=== PATIENT | female | born 1995 | race African-American/Black ===

== ENCOUNTER 2017-12-18 20:50 | Emergency (ER) | payer OTHER ==
[~2017-12-18] VITALS: Ht 167.6 cm; Wt 82.4 kg
[~2017-12-18 20:50] MED LIST: BCPILLS PO
[2017-12-18 20:55] VITALS: BP 139/82; PULSE 80; TEMP 36.9; O2SAT 96; Ht 167.6 cm; Wt 82.4 kg
[2017-12-18] MEDS ORDERED: PRED20TA2 PO (21:20)
--- NOTE | 2017-12-19 17:37 | EMERGENCY ROOM VISIT NOTE ---
History First contact with patient: 21:00 Chief Complaint: SKIN PROBLEM Stated Complaint: SKIN CONDITION History of Present Illness The patient is a 22 year old female who presents to the Emergency Room with complaints of persistent rash for the past several months. The patient states that she has had off-and-on symptoms for at least the last 3 months. She is evidently followed with [facility] [address] as well as an urgent care clinic. She is been treated previously with a topical steroid, which seemed to help her symptoms, however he continues to return. She is not having swelling of her throat, chest pain, chest tightness, shortness of breath, or cough. No abdominal or vaginal complaints. She is not taking anything [id number] such as Benadryl. The patient has not followed with a gerentological physiotherapist or immigration specialist. No new soaps or detergents. She is itching today and rates her discomfort a 2/10. Review of Systems More than 10 systems were reviewed and otherwise negative with the exception of history of present illness. Past Medical/Surgical History Medical Problems: (1) Murmur, cardiac Family History No pertinent family history Social History Smoking Status: Never Smoker Drug Use: marijuana Housing Status: lives with roommate Occupation Status: [place] [employer] student Current/Historical Medications Scheduled Control Pills ( Control Pills), 1 TAB PO DAILY Prednisone (Prednisone Tab), 2 TAB PO DAILY Physical Exam Vital Signs Date Time Temp Pulse Resp B/P (MAP) Pulse Ox O2 Delivery O2 Flow Rate FiO2 12/18/17 20:55 36.9 80 18 139/82 96 Room Air Physical Exam VITALS: Vitals are noted on the nurse's note and reviewed by myself. Vital signs stable. GENERAL: Well-developed, well-nourished, black female, who is in no acute distress and resting comfortably. Patient is cooperative with the examination. MOUTH: Mucous membranes moist. Tonsils are not enlarged. Pharynx without erythema, blood, or exudate. Uvula midline. Airway patent. NECK: Supple without nuchal rigidity. No lymphadenopathy. No thyromegaly. Cervical spine is nontender. HEART: Regular rate and rhythm without murmurs gallops or rubs. LUNGS: Clear to auscultation bilaterally without wheezes, rales or rhonchi. No retractions or accessory muscle use. ABDOMEN: Positive normal bowel sounds x 4. Soft, nontender, without masses or organomegaly. No guarding or rebound tenderness. MUSCULOSKELETAL: No muscle atrophy, erythema, or edema noted. Full range of motion without joint tenderness in all extremities. SKIN: The skin was with diffuse maculopapular rash best appreciated on the upper extremities bilateral. The rash does extend to the anterior chest and back. No obvious urticaria Medical Decision & Procedures Medications Administered Medications (Trade) Dose Ordered Sig/Milly Route Start Time Stop Time Status Last Admin Dose Admin Prednisone (PredniSONE TAB) 40 mg NOW STAT PO 12/18/17 21:12 12/18/17 21:13 DC 12/18/17 21:25 40 MG ED Course Physical exam and history were performed. Nursing notes, EMR, and Medication List were personally reviewed. Patient appears to have a vague rash across her body that is evidently off and on for the past 3 months. The patient certainly is not experiencing anaphylaxis. I do not appreciate evidence of distinct infection. The patient and I had a lengthy discussion regarding options of care. Based on the longevity of symptoms she does need to follow with a specialist. She does not appear to have an acute life-threatening process. I will try to treat her with a short course of steroids. She is to follow with [facility] [address] and get appropriate referrals. She was otherwise invited back to the ER with any new, worsening, or concerning symptoms. The chart was completed utilizing [employer] Speech Voice Recognition Software. Grammatical errors, random word insertions, pronoun errors, and incomplete sentences are an occasional consequence of this system due to software limitations, ambient noise, and hardware issues. Any formal questions or concerns about the content, text, or information contained within the body of this dictation should be directly addressed to the provider for clarification. . Medical Decision Differential diagnosis: Etiologies such as contact dermatitis, viral exanthem, urticaria, allergic reaction, Sanchez-Kaiden syndrome, toxic epidermal necrolysis, erythema multiforme, cellulitis, scabies, HSV, varicella, zoster, eczema, staph scalded skin syndrome, fungal infection, as well as others were entertained. Impression Primary Impression: Rash and nonspecific skin eruption Departure Information Dispostion Home / Self-Care Condition GOOD Prescriptions Prednisone (Prednisone Tab) 20 Mg Tab 2 TAB PO DAILY for 5 Days, #10 TAB Prov: Gabriel Barrett PA-C 12/18/17 Referrals No Doctor, Assigned [facility] (PCP) Forms HOME CARE DOCUMENTATION FORM, IMPORTANT VISIT INFORMATION Patient Instructions My [facility] Additional Instructions You were seen and evaluated today on an emergency basis only. This is not a substitute for, or an effort to provide, complete comprehensive medical care. It is not possible to recognize and treat all injuries or illnesses in a single emergency department visit. For this reason it is recommended that you followup with [facility] [address] as he will need referral to a gerentological physiotherapist or life enrichment specialist specialist. Take prednisone as prescribed You are welcome to return to the emergency department anytime with new, worsening, or concerning symptoms.
== END 2017-12-18 21:29 | disposition home or self-care (01) ==
LOC: C.EDB 20:52 → C.EDD 21:29
DX: R21 Rash and other nonspecific skin eruption (principal); F12.90 Cannabis use, unspecified, uncomplicated; Z79.3 Long term (current) use of hormonal contraceptives